=== PATIENT | male | born 1975 | race Caucasian/White ===

== ENCOUNTER → 2021-05-18 07:47 | Outpatient (CLI) | payer OTHER, SELFPAY ==
--- NOTE | ~2021-05-18 | US_ITS ---
EXAMINATION: US thyroid DATE: 05/18/2021 08:10 INDICATION: Nontoxic single thyroid nodule. TECHNIQUE: Multiple ultrasound images of the thyroid were obtained. COMPARISON: None. FINDINGS: The right thyroid lobe measures 4.8 x 1.7 x 2.3 cm. The left thyroid lobe measures 4.5 x 1.4 x 2.2 c m. In the left thyroid lobe, there is an 8 mm solid, very hypoechoic, svuti-lcgp-gnxp nodule with sm ooth margin without echogenic foci (TI-RADS TR4). IMPRESSION: 1. Small thyroid nodule, likely not clinically significant. No follow-up is needed. Reviewed, dictated and finalized at location B. 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 Small thyroid nodule, likely not clinically significant. No follow-up is nee ded.
== END ==
PROVIDERS: PCP Family Medicine; Visit Provider Physician Assistant Medical
DX: E04.1 Nontoxic single thyroid nodule (principal)
CPT/HCPCS: 76536

== ENCOUNTER → 2023-03-19 08:08 | Outpatient (CLI) | payer OTHER, SELFPAY ==
--- NOTE | ~2023-03-19 | US_ITS ---
EXAMINATION: US thyroid DATE: 03/19/2023 08:22 INDICATION: Nontoxic single thyroid nodule. TECHNIQUE: Multiple ultrasound images of the thyroid were obtained. COMPARISON: Ultrasound 05/18/2021 FINDINGS: The right thyroid lobe measures 5.5 x 2.8 x 2.0 cm. The left thyroid lobe measures 4.5 x 2.3 x 1.4 c m. In the left thyroid lobe, there is an 8 mm mixed cystic and solid, very hypoechoic, wider than ta ll nodule with smooth margin without echogenic foci (TI-RADS TR4). IMPRESSION: 1. Stable small thyroid nodule, likely not clinically significant. No follow-up is needed. Reviewed, dictated and finalized at location A. [employer] [employer]
== END ==
PROVIDERS: PCP Family Medicine; Visit Provider Otolaryngology
DX: E04.1 Nontoxic single thyroid nodule (principal)
CPT/HCPCS: 76536

== ENCOUNTER 2023-04-26 14:00 | Outpatient (CLI) | payer OTHER, SELFPAY | END 2023-04-26 14:01 | disposition home or self-care (01) | LOC: ANHAUDASC 11-19 08:13 | PROVIDERS: PCP Family Medicine; Visit Provider Otolaryngology | DX: E04.1 Nontoxic single thyroid nodule (principal); H61.22 Impacted cerumen, left ear; H65.492 Other chronic nonsuppurative otitis media, left ear; H90.12 Conductive hearing loss, unilateral, left ear, with unrestricted hearing on the contralateral side | CPT/HCPCS: 92557; 92567 ==

== ENCOUNTER 2023-07-20 00:52 | Day surgery (SDC) | payer OTHER, SELFPAY ==
[2023-07-16 11:24] VITALS: BMI 28.4
--- NOTE | 2023-07-16 12:01 | PC.NURSE ---
Report to the Outpatient Waiting Room, entrance under the green pavilion located off [facility], at time 0945 on date _07/20/23 . Planned Procedure Time: _1145 . Time changes happen often and if your time is changed the preop area will call you the afternoon before. - You and your visitor will be asked to self-screen and do not enter if you have any COVID symptoms. - A mask is optional within the hospital at this time. Patients may have clear liquids (water, carbonated beverages, clear teas, apple juice) until 3 hours prior to surgery with a maximum of 20 ounces. - No food from midnight until time of surgery Take the following medications with a SIP of water the morning of surgery: NONE DO NOT STOP ANY OF YOUR OTHER PRESCRIPTION MEDICATIONS PRIOR TO SURGERY ?EXCEPT THE FOLLOWING Medications to discontinue per physician NONE Date to take last dose____NONE Please no make-up, nail sinhala, hairspray, perfume, deodorant, or body powder the day of surgery. No jewelry (including any body piercings) or valuables the day of surgery, leave them at home. Please take a shower or bath the night before, or the morning of, surgery with an antibacterial soap. Wear comfortable, loose fitting clothing. - Jewelry must be removed prior to entering the operating room. Rings and piercings that are not removed may be cut off. - The hospital will not accept responsibility for valuables. - Please leave all valuables, including medications, at home the day of surgery. If you are going home after surgery, a licensed dolly driver must drive you home. - NO public transportation without another adult if you receive anesthesia. - We recommend that an adult stay with you for 24 hours following discharge. - We also recommend that you do not drive, make important decision, drink alcoholic beverages, or take any drugs that were not prescribed by your health care provider for at least 24 hours after your discharge time. Follow any additional instructions given to you from your surgeon. If you or anyone in your household have experienced Covid symptoms in the past week, please notify your surgeon or the nurse liaison at the phone number below for possible testing. Telephone instructions given to _JEFF and asked if any additional questions and then verbalized understanding. Patient advised to call surgeon office or pre surgery nurse liaison [phone] if any additional questions.
--- NOTE | 2023-07-19 14:03 | WPDANESEPPF ---
Anes - Initial Pre Proc Eval Procedure: Operation Date: 07/20/23 12:45 Proposed Procedures p Bilateral Inferior Turbinate Reduction with Outfracture - Reza Mcelroy MD s Endoscopic Septoplasty - Reza Mcelroy MD Date/Time: 07/19/23 14:03 Surgeon: Reza Mcelroy MD Pre Op Diagnosis: Septal Dev, Turbinate Hypertrrophy Patient Data Age: 47 Gender: M Height: 1.83 m Weight: 95 kg Allergies Allergy/AdvReac Type Severity Reaction Status Date / Time lisinopril AdvReac Unknown RINGING OF Verified 07/20/23 11:18 EARS norvasc AdvReac Mild salivary Uncoded 07/20/23 11:18 gland swelling Home Medications Medication Instructions Recorded Confirmed Type fluticasone propionate 50 2 spray intranasal DAILY #18 mL 03/13/23 07/20/23 Rx mcg/actuation nasal spray,suspension (Flonase Allergy Relief) valacyclovir 1 gram tablet 1,000 mg PO Q12H #4 tabs 05/28/23 07/20/23 Rx finasteride 1 mg tablet See Rx Instructions .Route 07/03/23 07/20/23 Rx .COMPLEX #90 tabs losartan 25 mg tablet 25 mg PO DAILY #90 tabs 07/03/23 07/20/23 Rx Patient hx anesthesia problems: none Family hx anesthesia problems: none Results Review: All pre-operative results and documents have been reviewed as part of the pre-operative evaluation. [facility] Past Medical History Medical History (Updated 07/19/23 @ 14:03 by Wally Leonard DO) BMI 29.0-29.9,adult Essential hypertension Hyperlipidemia Family History Family History Father Hypertension Mother Patient's mother is in good health Melanoma Sibling Patient's sister is in good health Grandparent Family history of cardiovascular disease Cerebrovascular accident Malignant neoplasm of prostate Family history of malignant neoplasm of kidney Other Family history of coronary artery disease Social History Social History Smoking status: Never smoker Tobacco type: cigarettes Second hand tobacco smoke exposure: No Alcohol intake: current Substance use: never Substance use type: does not use Lack of Transportation: No Lack of Food: Never True Current Housing: I Have Housing Concerned About Future Housing: No Difficulty Paying Gas/Electric Bills: No Difficulty Paying for Meds: No Currently Unemployed: No Education: Master's Degree or Higher Difficulty w/ Childcare or Family Care: No Living arrangements: with family Occupation/Education: occupation 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 Informed Consent: The patient's anesthetic plan and its attendant risks and benefits were discussed with the patient/family/POA. Questions were solicited and answers provided to the satisfaction of the patient/family/POA.
--- NOTE | 2023-07-19 16:57 | PM.IMHP ---
H&P: HPI History of Present Illness Date/Time: 07/19/23 16:57 Chief Complaint: septal deviation turbinate hypertrophy Narrative: planned procedure Review of Systems Review of Systems: All systems reviewed & are unremarkable except as noted in HPI and below [facility] Past Medical History Medical History (Updated 07/19/23 @ 14:03 by Wally Leonard DO) BMI 29.0-29.9,adult Essential hypertension Hyperlipidemia Family History Family History Father Hypertension Mother Patient's mother is in good health Melanoma Sibling Patient's sister is in good health Grandparent Family history of cardiovascular disease Cerebrovascular accident Malignant neoplasm of prostate Family history of malignant neoplasm of kidney Other Family history of coronary artery disease Social History Social History Smoking status: Never smoker Tobacco type: cigarettes Second hand tobacco smoke exposure: No Alcohol intake: current Substance use: never Substance use type: does not use Lack of Transportation: No Lack of Food: Never True Current Housing: I Have Housing Concerned About Future Housing: No Difficulty Paying Gas/Electric Bills: No Difficulty Paying for Meds: No Currently Unemployed: No Education: Master's Degree or Higher Difficulty w/ Childcare or Family Care: No Living arrangements: with family Occupation/Education: occupation 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 Gender identity (if verbalized by the patient): Male Spiritual care concerns: No Meds Home Medications and Allergies Home Medications Medication Instructions Recorded Confirmed Type fluticasone propionate 50 2 spray intranasal DAILY #18 mL 03/13/23 07/16/23 Rx mcg/actuation nasal spray,suspension (Flonase Allergy Relief) valacyclovir 1 gram tablet 1,000 mg PO Q12H #4 tabs 05/28/23 07/16/23 Rx finasteride 1 mg tablet See Rx Instructions .Route 07/03/23 07/16/23 Rx .COMPLEX #90 tabs losartan 25 mg tablet 25 mg PO DAILY #90 tabs 07/03/23 07/16/23 Rx Allergies Allergy/AdvReac Type Severity Reaction Status Date / Time lisinopril Allergy Unknown RINGING OF Verified 06/15/23 08:14 EARS norvasc AdvReac Mild salivary Uncoded 06/15/23 08:14 gland swelling Exam Narrative: septal deviation turbinate hypertrophy Assessment and Plan Assessment and plan (1) Hypertrophy of both inferior nasal turbinates: Code(s): J34.3 - Hypertrophy of nasal turbinates Status: Acute Assessment and Plan: Plan will be OR endoscopic assisted septoplasty and turbinate reduction.? I told like make about 80 95% better just by opening up the right side.? Via burn release principal this may decreased airflow through the left-sided help with collapse.? Patient is well aware there is a risk that of the left internal nasal valve being a problem afterwards and he may need revision surgery.? Patient voiced understanding of this.? Other risks discussed bleeding infection damage to surrounding structures change in vision blindness CSF leak brain brain damage all very very unlikely.? Need for splint placement haired risk of narcotic use damage any structures above the clavicle by myself damage any structures during the induction and maintenance of anesthesia including vocal cord paralysis. (2) Acquired deviated nasal septum: Code(s): J34.2 - Deviated nasal septum Status: Acute
[2023-07-20] VITALS (8 sets, daily range): BP systolic 130–162; BP diastolic 85–104; PULSE 53–73; RESP 10–18; TEMP 36.7–36.8; O2SAT 100
--- NOTE | 2023-07-20 07:26 | WPDHPUPDATE1 ---
History and Physical Update Update Date/Time: 07/20/23 07:26 History and Physical has been reviewed, including an updated exam of the patient. There are NO changes in the patient's condition. Risks, benefits, and alternatives have been discussed and questions answered. Patient agrees to proceed with procedure.
--- NOTE | 2023-07-20 11:41 | ECG_ITS ---
Measurements Intervals [place] Rate: 55 P: 34 VA: 167 QRS: 22 QRSD: 97 T: 22 QT: 407 QTc: 391 Interpretive Statements SINUS BRADYCARDIA INCOMPLETE RIGHT BUNDLE BRANCH BLOCK BORDERLINE ECG COMPARED TO ECG 08/26/2018 08:18:04 SINUS BRADYCARDIA NOW PRESENT Electronically Signed On 07-20-2023 13:16:12 CDT by Bo Mathew D.O.
[2023-07-20] MEDS: ACETAMINOPHEN 500 MG TABLET 1000 MG PO (11:42)
[2023-07-20] MEDS: LACTATED RINGERS 1,000 ML 30 ML IV CONT ×2 (11:45→16:27)
--- NOTE | 2023-07-20 12:00 | SUR.PREOP ---
PATIENT UPDATED ON SURGERY DELAY
--- NOTE | 2023-07-20 12:30 | WPDHPUPDATE1 ---
History and Physical Update Update Date/Time: 07/20/23 12:30 History and Physical has been reviewed, including an updated exam of the patient. There are NO changes in the patient's condition. Risks, benefits, and alternatives have been discussed and questions answered. Patient agrees to proceed with procedure. Procedure will be septoplasty, inferior turbinate reduction with outfracture bilaterally
[2023-07-20] MEDS: ceFAZolin 2 GM/D5W 50 ML 2 GM/50 ML BAG IVPB (14:17)
[2023-07-20] MEDS: MUPIROCIN 2% OINT 22 GM TUBE 1 APPLIC EACH NARE (15:46)
[2023-07-20] MEDS: OXYMETAZOLINE HCL 0.05% NAS 15 ML BTL (*BKC) 1 SPRAY NASAL (15:49)
[2023-07-20] MEDS: LIDO 1%/EPINEPHRINE 1:100,000 50 ML VIAL 16 ML INFILTRATE (15:52)
--- NOTE | 2023-07-20 16:33 | W.PM.PROC2 ---
Procedure Note - Detailed Date of Procedure 07/20/23 Pre-op Diagnosis Septal Dev, Turbinate Hypertrrophy Post-op Diagnosis Same Procedure Performed SP endoscopic assisted turbinate reduction bilaterally with outfracture septoplasty Surgeon Reza Mcelroy MD Anesthesia General Indications see above Findings severely deviated caudal right septum perforations on the right side none on the left severely hypertrophied osteotomy turbinates well reduced little bit more bleeding than normal at from the scar tissue from the nasal fracture in his past. Total blood loss about 15 cc 20 cc. Description of Procedure Patient identified consent verified preop. Patient brought operating. Time-out performed. General anesthesia induced endotracheal tube secured. Patient prepped draped positioned procedure confirmed 2nd time-out performed. Afrin-soaked pledgets placed for 5 minutes then removed total 13 cc 1% lidocaine 1 100,000 parts epinephrine checked the bilateral nasal septum and inferior turbinates [place] incision made very anteriorly left side left nasal septal flap elevated osteotome utilized crossover right nasal septal flap elevated deviated cartilage removed with Yoel forceps Bryant Lopez forceps and osteotome. Several perforations on the right side none on the left Arturo incision closed after FloSeal was applied with 4 interrupted 5 0 fast gut sutures. Turbinates reduced 15 blade used to make a stab anteriorly microdebrider [place] microdebrider with 2.5 mm blade utilized to debulk them mulberry tips cauterized Bovie suction electrocautery setting of 15. He anterior portions with a stab incision were made FloSeal was placed in this. They were outfractured [place] elevator Gary splints placed current all the perforations much better appearance postoperatively Gary splints sutured anteriorly using 3-0 mattress nylon suture. Patient tolerated procedure well no complications I performed all dictated portions procedure blood loss about 15-20 cc. Estimated Blood Loss 15 Drains No Packing No Pathology None sent Complications No immediate complications Condition Stable Disposition PACU [facility] Billing Surgery - Charge Forward: Surgery Billing
== END 2023-07-20 18:27 | disposition home or self-care (01) ==
PROVIDERS: PCP Family Medicine; Visit Provider Otolaryngology
PROC: (CPT 30520; principal; 2023-07-20 12:45)
PROC: (CPT 30520; 2023-07-20 12:45)
DX: J34.2 Deviated nasal septum (principal); J34.3 Hypertrophy of nasal turbinates; I10 Essential (primary) hypertension; E78.5 Hyperlipidemia, unspecified
CPT/HCPCS: 30520; 30140; 93005; A9270; J0690; J1100; J1170; J2250; J2405; J2704; J3010; J7050; J7120

== ENCOUNTER 2023-11-07 08:12 | Outpatient (CLI) | payer OTHER, SELFPAY ==
--- NOTE | 2023-11-07 08:31 | EST_ITS ---
Patient Info Name: Lon Ballard Age: 48 years : 1975 Gender: Male Ht: 71 in Wt: 208 lbs BSA: 2.19 m2 HR: 70 bpm BP: 141 / 95 mmHg Heart Rhythm: Sinus Rhythm Exam Date: 11/07/2023 8:42 AM Exam Location: Echo Lab Patient Status: Outpatient Admit Date: 11/07/2023 Staff Ordering Physician: Gris Ruff PAC Attending Provider: Gris Ruff PAC Exercise Technologist: Dee Joyce CT Exercise Physician: Bo Mathew DO Exam Type: CA stress test treadmill Study Info Indications R07.89 - Other chest pain A treadmill exercise stress test was performed. Summary 1. 1. Negative Darci exercise stress test for ischemic ST changes by ECG criteria. 2. 2. Good functional capacity, achieving 12 METs of workload. 3. 3. Baseline hypertension. 4. 4. Appropriate HR response to exercise. 5. 5. Appropriate HR recovery at 1 minute post exercise. 6. 6. No imaging with stress testing. Protocol: Darci Stress ECG Details Stage: REST Duration (min): 1 min : 4 sec Speed (mph): 0.0 Grade (%): 0 HR (bpm): 74 SBP (mmHg): 141 DBP (mmHg): 95 METS: --- Stage: REST Duration (min): 4 min : 49 sec Speed (mph): 0.0 Grade (%): 0 HR (bpm): 76 SBP (mmHg): 141 DBP (mmHg): 95 METS: --- Stage: STAGE 1 Duration (min): 1 min : 0 sec Speed (mph): 1.7 Grade (%): 10 HR (bpm): 108 SBP (mmHg): 141 DBP (mmHg): 95 METS: --- Stage: STAGE 1 Duration (min): 2 min : 0 sec Speed (mph): 1.7 Grade (%): 10 HR (bpm): 103 SBP (mmHg): 141 DBP (mmHg): 95 METS: --- Stage: STAGE 1 Duration (min): 3 min : 0 sec Speed (mph): 1.7 Grade (%): 10 HR (bpm): 103 SBP (mmHg): 151 DBP (mmHg): 103 METS: --- Stage: STAGE 2 Duration (min): 1 min : 0 sec Speed (mph): 2.5 Grade (%): 12 HR (bpm): 117 SBP (mmHg): 151 DBP (mmHg): 103 METS: --- Stage: STAGE 2 Duration (min): 2 min : 0 sec Speed (mph): 2.5 Grade (%): 12 HR (bpm): 122 SBP (mmHg): 150 DBP (mmHg): 107 METS: --- Stage: STAGE 2 Duration (min): 3 min : 0 sec Speed (mph): 2.5 Grade (%): 12 HR (bpm): 124 SBP (mmHg): 150 DBP (mmHg): 107 METS: --- Stage: STAGE 3 Duration (min): 1 min : 0 sec Speed (mph): 3.4 Grade (%): 14 HR (bpm): 133 SBP (mmHg): 185 DBP (mmHg): 97 METS: --- Stage: STAGE 3 Duration (min): 2 min : 0 sec Speed (mph): 3.4 Grade (%): 14 HR (bpm): 136 SBP (mmHg): 185 DBP (mmHg): 97 METS: --- Stage: STAGE 3 Duration (min): 3 min : 0 sec Speed (mph): 3.4 Grade (%): 14 HR (bpm): 142 SBP (mmHg): 180 DBP (mmHg): 83 METS: --- Stage: STAGE 4 Duration (min): 1 min : 0 sec Speed (mph): 4.2 Grade (%): 16 HR (bpm): 149 SBP (mmHg): 180 DBP (mmHg): 83 METS: --- Stage: STAGE 4 Duration (min): 1 min : 33 sec Speed (mph): 4.2 Grade (%): 16 HR (bpm): 153 SBP (mmHg): 180 DBP (mmHg): 83 METS: --- ---
== END 2023-11-07 08:13 | disposition home or self-care (01) ==
PROVIDERS: PCP Family Medicine; Visit Provider Physician Assistant Medical
DX: R07.9 Chest pain, unspecified (principal)
CPT/HCPCS: 93017

== ENCOUNTER 2024-03-19 08:21 | Outpatient (CLI) | payer OTHER, SELFPAY ==
--- NOTE | ~2024-03-19 | US_ITS ---
EXAMINATION: US thyroid DATE: 03/19/2024 08:40 INDICATION: Nontoxic single thyroid nodule. TECHNIQUE: Multiple ultrasound images of the thyroid were obtained. COMPARISON: Ultrasound 03/19/2023, 05/18/2021 FINDINGS: The right thyroid lobe measures 5.5 x 2.4 x 1.8 cm. The left thyroid lobe measures 4.3 x 2.1 x 1.7 c m. In the left thyroid lobe, there is an 8 mm solid, very hypoechoic, wider than tall nodule with sm ooth margin without echogenic foci (TI-RADS TR4), stable from 05/18/2021. IMPRESSION: 1. Stable small thyroid nodule, likely not clinically significant. No follow-up is needed. Reviewed, dictated and finalized at location [] [employer]
== END 2024-03-19 08:22 | disposition home or self-care (01) ==
LOC: GOSHIMG 08:21
PROVIDERS: PCP Family Medicine; Visit Provider Otolaryngology
DX: E04.1 Nontoxic single thyroid nodule (principal)
CPT/HCPCS: 76536

== ENCOUNTER 2024-06-11 09:57 | Outpatient (CLI) | payer OTHER, SELFPAY ==
--- NOTE | ~2024-06-11 | XR_ITS ---
AP and oblique views of the bilateral ribs, and PA and lateral chest radiographs Clinical History: Pain Findings: No rib fracture is seen. Osseous alignment is anatomic. Lungs are clear, without focal cons olidation or pleural effusion. Cardiomediastinal contour is within normal limits. Soft tissues are un remarkable. Impression: No rib fracture is seen. Clear lungs. Reviewed, dictated and finalized at location . 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 Clear lungs.
--- OUTSIDE RECORDS SUMMARY | 2024-06-11 10:50 | XMS_ITS | Encounter Summary ---
Author Organization [facility] Address [address] [place] [address] Care Team Providers Care Economic Development Specialist Name Role Phone Summer Myers MD Primary Care Provider Juanjo Ferreira MD Unavailable Kimberly Mathews MD Unavailable Rodrick Vasquez MD Primary Care Provider [phone] Reason for Visit * Reason Onset Date Comments Refill Request 09/03/2017 Encounter Details Date Type Department Care Team (Late st Contact Info) Description 09/03/2017 Refill [facility] [address] [place] [address] Yonny Olmedo MD [address] [place] [id number] Refill Request Social History Tobacco Use Types Packs/Day Years Used Date Smoking Tobacco: Never Smokeless Tobacco: Never Alcohol Use Standard Drinks/Week Comments Yes 0 (1 standard drink = 0.6 oz pur e alcohol) Sex and Gender Information Value Date Recorded Sex Assigned at Not on file Gender Identity Not on file Sexual Orientation Not on file documented as of this encounter Miscellaneous Notes * Telephone Encounter - Isha Levy - 09/03/2017 11:39 AM CDT [place] 01/21/16 [place] 02/01/18 Isha Levy * Telephone Encounter - Selma Perdomo - 09/03/2017 10:59 AM [phone] - Requesting a refill on Valacyclovir documented in this encounter Plan of Treatment Not on file documented as of this encounter Visit Diagnoses Not on filedocumented in this encounter Care Teams Economic Development Specialist Relationship Specialty Start Date End Date Summer Myers MD PCP - General 04/06/17 04/09/22 Rodrick Vasquez MD [address] [place] [id number] PCP - General 04/10/22 Juanjo Ferreira MD [address] [place] [address] Resident - PCP Internal Medicine 07/29/18 12/30/18 Kimberly Mathews MD [address] [place] [address] Resident - PCP Student Resident 12/31/18 documented as of this encounter
--- OUTSIDE RECORDS SUMMARY | 2024-06-11 10:50 | XMS_ITS | Encounter Summary ---
Author Organization [facility] Address [address] [place] [address] Care Team Providers Care Industrial Eng Name Role Phone Summer Myers MD Primary Care Provider Juanjo Ferreira MD Unavailable Kimberly Mathews MD Unavailable Rodrick Vasquez MD Primary Care Provider [phone] Reason for Visit * Reason Onset Date Comments Future Appointment 07/24/2018 Encounter Details Date Type Department Care Team (Late st Contact Info) Description 07/24/2018 Telephone [facility] Internal Medicine [address] [facility] [address] [place], [place] [id number] Summer Myers MD [address] [facility] [address] [place] [address] Future Appointment Social History Tobacco Use Types Packs/Day Years [...] encounter Miscellaneous Notes * Telephone Encounter - Meggan Tay - 07/24/2018 11:54 AM CDT Pt Lon Balladr Pt requesting to see if he could see another resident with a sooner date pt has an appt with Dr. Ferreira for Sunday at 2:00 PM. Pt was wanting to know if he could see another resident that has a sooner appt than July 29. Thank you very much Meggan documented in this encounter Plan of Treatment Not on file documented as of this encounter Visit Diagnoses Not on filedocumented in this encounter Care Teams Industrial Eng Relationship Specialty Start Date End Date Summer Myers MD PCP - General 04/06/17 04/09/22 Rodrick Vasquez MD [place] [phone] PCP - General 04/10/22 Juanjo Ferreira MD [address] [place] [address] Resident - PCP Internal Medicine 07/29/18 12/30/18 Kimberly Mathews MD [address] [place] [address] Resident - PCP Student Resident 12/31/18 documented as of this encounter
--- OUTSIDE RECORDS SUMMARY | 2024-06-11 10:50 | XMS_ITS | Encounter Summary ---
Author Organization [facility] Address [address] [place] [address] Care Team Providers Care Quarry Supervisor Name Role Phone Kimberly Mathews MD Unavailable Rodrick Vasquez MD Primary Care Provider Encounter Details Date Type Department Care Team (Late st Contact Info) Description 12/05/[address] [facility] [address] [facility] [place] [phone] Idalia Anguiano MD [address] [place] [address] [place] [address] Melanocytic nevi of trunk Social History Tobacco Use Types Packs/Day Years Used Date Smoking Tobacco: Never Smokeless Tobacco: Never Alcohol Use Standard Drinks/Week Comments Yes 0 (1 standard drink = 0.6 oz pur e alcohol) Sex and Gender Information Value Date Recorded Sex Assigned at Not on file Gender Identity Not on file Sexual Orientation Not on file documented as of this encounter Plan of Treatment Not on file documented as of this encounter Visit Diagnoses Diagnosis Melanocytic nevi of trunk Benign neoplasm of skin of trunk, except scrotum documented in this encounter Care Teams Quarry Supervisor Relationship Specialty Start Date End Date Rodrick Vasquez MD [address] [place] [address] [place] [address] PCP - General 04/10/22 Kimberly Mathews MD [address] [place] [address] Resident - PCP Student Resident 12/31/18 documented as of this encounter
--- OUTSIDE RECORDS SUMMARY | 2024-06-11 10:50 | XMS_ITS | Clinical Summary ---
[facility] Organization [facility] Address [address] [place]: Epic Prelude ADT [place] [address] Care Team Providers Care Butadiene Compressor Operator Name Role Phone Unavailable Primary Care Provider Unavailabl e Medications lidocaine-alumi num-magnesium hydroxide-simet hicone-diphenhy drAMINE-nystati n mouthwash SWISH AND SPIT 10 mL by mouth 2 times daily. 400 mL 12/22/2021 8:46 AM CDT 2 Active amoxicillin (AMOXIL) 500 mg capsule TAKE ONE CAPSULE BY MOUTH EVERY 12 HOURS FOR 10 DAYS 20 Capsule 12/22/2021 10:16 AM CDT 2 Active amLODIPine (NORVASC) 2.5 mg tablet Take 1 Tablet (2.5 mg) by mouth daily. Take with 5 mg strength. 90 Tablet 1 08/09/2022 2:54 PM CDT 2 Active neomycin-polymy nery-hydrocortis one (CORTISPORIN) 3.5-10,000-1 mg/mL-unit/mL-% otic solution ADMINISTER 4 DROPS IN THE LEFT EAR FOUR TIMES DAILY FOR 7 DAYS 10 mL 12/05/2022 5:30 PM CDT 3 Active fluticasone propionate (FLONASE) 50 mcg/spray [place], Suspension nasal inhaler ADMINISTER 2 SPRAYS IN EACH NOSTRIL DAILY 16 Gram 2 03/19/2023 2:26 PM PHARMACIST APPRENTICE 3 Active hydrocortisone (HYTONE) 2.5 % Ointment Apply to itchy areas on face twice daily for 2 weeks maximum. 28.35 Gram 07/04/2023 9:22 AM PHARMACIST APPRENTICE 4 Active finasteride (PROPECIA) 1 mg Tablet Take 1 Tablet (1 mg) by mouth daily. 90 Tablet 09/24/2023 2:08 PM CDT 4 Active valACYclovir (VALTREX) 1 gram tablet Take 1 Tablet (1 Gram) by mouth every 12 hours. 4 Tablet 2 04/09/2024 2:08 PM PHARMACIST APPRENTICE 4 Active losartan (COZAAR) 25 mg tablet Take 1 Tablet (25 mg) by mouth daily. 90 Tablet 04/09/2024 2:08 PM PHARMACIST APPRENTICE 4 Active Immunizations Immunization Administration Dates Next Due (COMIRNATY)(12 YR UP) COVID- 19 VACCINE, MRNA, SPIKE PROTEIN, LNP, CUCO(PF) 30 MCG/0.3 ML IM SUSP 03/19/2023 INFLUENZA VACCINE QUADRIVALENT 6 MOS UP PF IM Social History Tobacco Use Types Packs/Day Years Used Date Smoking Tobacco: Never Assessed Sex and Gender Information Value Date Recorded Sex Assigned at Not on file Legal Sex Male 3:27 PM CDT Gender Identity Not on file Sexual Orientation Not on file Plan of Treatment Health Maintenance Due Date Last Done Comments DTAP/TDAP/TD VACCINES (1 - Tdap) 1993 HEPATITIS B VACCINES (1 of 3 - 19+ 3-dose series) 1993 COLORECTAL SCREENING 09/28/2019 Colorectal Cancer Screening 09/28/2019 FIT-DNA Q 3 years 09/28/2019 FIT/FOBT Q 1 year 09/28/2019 Flex Sig/CT Colonography Q 5 years 09/28/2019 INFLUENZA VACCINE (#1) 2023 03/19/2023 COVID-19 Vaccine (2 - 2023-2 5 season) 2024 03/19/2023 PNEUMOCOCCAL VACCINE 0-64 YEARS Aged Out No longer eligible based on patient's age to complete this topic Insurance RX [employer] RX Member Subscriber Plan / Payer (Ef fective 2022-Present) Name:Lon Ballard Relation to Subscriber:Not on file Name:Lon Ballard Subscriber ID:Not on file Date of :1975 Payer ID:Not on file Group ID:[id number] Type:RX Commercial Address: [place] RX [employer] (INTERNAL) [facility]
--- OUTSIDE RECORDS SUMMARY | 2024-06-11 10:51 | XMS_ITS | Patient Health Summary ---
Author Organization [facility] Address [address] [place] [address] Care Team Providers Care Logger Name Role Phone Kimberly Mathews MD Unavailable Rodrick Vasquez MD Primary Care Provider [phone] Note from [facility],non-owned Affiliates and Associated Physician Practices is amultiple site organization consisting of ambulatory clinics and hospital sitesin [place], [place], [place] and [place]. This disclosure is being madepursuant to the Care Everywhere program and may not contain all information available regarding this patient. Last updated 18.[facility] Allergies * Lisinopril(Tinnitus) -Low Criticality Medications * Be aware that medications may not be up to date on this document. Alwaysverify current medications with the patient. * amLODIPine (NORVASC) 5 MG tablet(Started 01/07/2019) TAKE ONE TABLET BY MOUTH ONCE DAILY 1 refill remaining * valACYclovir (VALTREX) 1 GM tablet(Started 04/11/2019) Take 2 grams bid x 1 day (2 doses) for flares. 2 refills by 04/10/2020 * finasteride (PROPECIA) 1 MG tablet(Started 04/11/2019) Take one tab by mouth every other day. 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 (FLUZONE; FLULAVAL; FLUARIX; AFLURIA QUADRIVALENT; 6MO+), 0.5 ML (IIV4)(Given 07/29/2018) * Influenza Intradermal(Given 02/26/2017) * TDAP (7yrs+)(Given 02/26/2017) Social History Tobacco Use Types Packs/Day Years Used Date Smoking Tobacco: Never Smokeless Tobacco: Never Alcohol Use Standard Drinks/Week Comments Yes 0 (1 standard drink = 0.6 oz pur e alcohol) Sex and Gender Information Value Date Recorded Sex Assigned at Not on file Gender Identity Not on file Sexual Orientation Not on file Last Filed Vital Signs Vital Sign Reading Time Taken Comments Blood Pressure 140/100 12/30/2018 3:27 PM CDT Pulse 73 12/30/2018 3:27 PM CDT Temperature 36.7 ??C (98.1 ??F) 12/30/2018 3:27 PM CD T Respiratory Rate 18 07/26/2018 9:13 AM CDT Oxygen Saturation 96% 12/30/2018 3:27 PM CDT Inhaled Oxygen Concentration - - Weight 90.3 kg (199 lb) 12/30/2018 3:27 PM CDT Height 182.9 cm (6') 02/26/2017 2:46 PM CDT Body Mass Index 26.99 02/26/2017 2:46 PM CDT Procedures * NV DESTROY PREMALIG LESION, 1ST LESION(Performed 04/10/2022) Performed for Actinic keratosis * NV DESTROY PREMALIG LESION, 2-14(Performed 04/10/2022) Performed for Actinic keratosis * NV DESTROY PREMALIG LESION, 1ST LESION(Performed 04/06/2021) Performed for Actinic keratosis * SYPHILIS ANTIBODY CASCADING REFLEX(Performed 07/26/2018) Performed for Contact with and (suspected) exposure to infections with a predominantly sexual mode of transmission, Essential hypertension * HIV-1 HIV-2 ANTIGEN/ANTIBODY(Performed 07/26/2018) Performed for Contact with and (suspected) exposure to infections with a predominantly sexual mode of transmission * NEISSERIA GONORRHOEAE RICHARD(Performed 07/26/2018) Performed for Contact with and (suspected) exposure to infections with a predominantly sexual mode of transmission * CHLAMYDIA TRACHOMATIS RICHARD(Performed 07/26/2018) Performed for Contact with and (suspected) exposure to infections with a predominantly sexual mode of transmission * HEMOGLOBIN A1C - POINT OF CARE (AMB) [facility](Performed 02/26/2017) * DERMATOPATHOLOGY(Performed 08/03/2015) * DERMATOPATHOLOGY(Performed 12/24/2012) Results * NV DESTROY PREMALIG LESION, 2-14, NV DESTROY PREMALIG LESION, 1ST LESION (04/10/2022 9:08 AM [employer]) Narrative Kory Escobar MD - 04/10/2022 9:08 AM [employer] Boo Lambert MD ? 04/10/2022 ??9:09 AM Diagnosis and treatment options discussed. Cryotherapy (Liquid Nitrogen) to 3 AK(s) (location: R brow, glabella, R nasal sidewall ) x 6-7 seconds each. Number of cycles: 1. Wound care reviewed. Kory Escobar MD PROCEDURE/MINOR SURG ICAL ORDERABLES * NV DESTROY PREMALIG LESION, 1ST LESION (04/06/2021 2:58 PM [employer]) Narrative Kory Escobar MD - 04/06/2021 2:58 PM [employer] Veronika Taylor DO ? 04/06/2021 ??2:58 PM Diagnosis and treatment options discussed. Cryotherapy (Liquid Nitrogen) to 1 lesions for 5 to 10 seconds each. Number of cycles: 1. Wound care reviewed. Veronika Taylor DO [facility] Dermatology Resident, PGY-4 Kory Escobar MD PROCEDURE/MINOR SURG ICAL ORDERABLES * NEISSERIA GONORRHOEAE RICHARD (07/26/2018 10:40 AM CDT) Neisseria Gonorrhoeae RICHARD Not Detected Not Detected 07/29/2018 5:36 PM CDT [facility] PATHOLOGY LAB Microbiology URINE / Unknown Collection / Unknown 07/26/2018 10:40 AM CDT 07/26/2018 11:44 AM CDT Narrative [facility] PATH[facility] - 07/29/2018 5:36 PM CDT This analysis was performed using Gen-Probe Aptima Combo 2. This methodology is U.S. FDA approved for Chlamydia trachomatis and Neisseria gonorrhoeae testing for urine and urogenital swabs from men and women, and cervical cells submitted in ThinPrep vials. Performance characteristics for rectal and pharyngeal swabs were determined by the Molecular Diagn[facility] Laboratory at [facility]. ??Testing by Gen- Probe Aptima Combo 2 on these sample types has not been cleared or approved by the U.S. FDA. ??The FDA has determined that such clearance approval is not necessary. ??This test is used for clinical purposes and should not be regarded as investigational or for research. ??This laboratory is certified under the Clinical Laboratory Improvements Amendments of 1988 (CLIA 1988), as qualified to perform high complexity laboratory testing. Mark Hernández MD LAB - MICROBIOLOG Y ORDERABLES Performing Organization Address City/State/[facility] Co de Phone Number [facility] PATHOLOGY LAB [address] [phone] * CHLAMYDIA TRACHOMATIS RICHARD (07/26/2018 10:40 AM CDT) Chlamydia Trachomatis RICHARD Not Detected Not Detected 07/29/2018 5:36 PM CDT [facility] PATHOLOGY [facility] Microbiology URINE / Unknown Collection / Unknown 07/26/2018 10:40 AM CDT 07/26/2018 11:44 AM CDT Narrative [facility] PATHOLOGY LAB - 07/29/2018 5:36 PM CDT This analysis was performed using Gen-Probe Aptima Combo 2. This methodology is U.S. FDA approved for Chlamydia trachomatis and Neisseria gonorrhoeae testing for urine and urogenital swabs from men and women, and cervical cells submitted in ThinPrep vials. Performance characteristics for rectal and pharyngeal swabs were determined by the [facility] Laboratory at [facility]. ??Testing by Gen- Probe Aptima Combo 2 on these sample types has not been cleared or approved by the U.S. FDA. ??The FDA has determined that such clearance approval is not necessary. ??This test is used for clinical purposes and should not be regarded as investigational or for research. ??This laboratory is certified under the Clinical Laboratory Improvements Amendments of 1988 (CLIA 1988), as qualified to perform high complexity laboratory testing. Mark Hernández MD LAB - MICROBIOLOG Y ORDERABLES Performing Organization Address City/[facility]/ZIP Co de Phone Number [facility] PATHOLOGY LAB [address] [phone] * HIV-1 HIV-2 ANTIGEN/ANTIBODY (07/26/2018 10:40 AM CDT) HIV Antigen/Antibod y 1 & 2 Non-reacti ve Non-react rebecca 07/26/2018 12:05 PM CDT [facility] Comment: Neither HIV-1 p24 Antigen nor HIV-1/HIV-2 Antibodies are detected. ? Blood BLOOD SPECIMEN / Unknown Lab Venipuncture / Unknown 07/26/2018 10:40 AM CDT 07/26/2018 11:24 AM CDT Mark Hernández MD LAB - HEMATOLOGY ORDERABLES Performing Organization Address [facility] Co de Phone Number [facility] [address] [place] [address] * SYPHILIS ANTIBODY CASCADING REFLEX (07/26/2018 10:40 AM CDT) Treponema pallidum Antibody Non-react rebecca Non-react rebecca 07/29/2018 8:50 AM CDT [facility] Comment: No Laboratory evidence of syphilis infection. ?? Note: ??Circulating antibodies may be low or undetectable in early infection. ??If recent exposure is suspected, re-draw sample in 2-4 weeks and repeat testing. Blood BLOOD SPECIMEN / Unknown Lab Venipuncture / Unknown 07/26/2018 10:40 AM CDT 07/26/2018 11:24 AM CDT Summer Myers MD LAB - SEROLOGY ORDERABLES Performing Organization Address City/[facility]/ZIP Co de Phone Number [facility] [address] [phone] * HEMOGLOBIN A1C - POINT OF CARE (AMB) [facility] (02/26/2017 4:16 PM CDT) Hemoglobin A1c POCT 4.9 [facility] Capillary blood specimen (specimen) 02/26/2017 4:16 PM CDT Summer Myers MD LAB - POINT OF CARE ORDERABLES Performing Organization Address [facility] Co de Phone Number [facility] * PATHOLOGY TISSUE FOR DERMATOLOGY (08/03/2015 12:00 AM CDT) Only the most recent of2 resultswithin the time period is included. Result CASE: [id number] PATIENT: JESSICA BALLARD PATHOLOGIC DIAGNOSIS: Left prox. ext. forearm: BENIGN VERRUCOUS KERATOSIS HEALING SKIN CHANGES CLINICAL DATA: R/O dys. nevus. GROSS DESCRIPTION: Received is one formalin filled container labeled with the patients name and designated left prox. ext. forearm. The specimen consists of a shave biopsy measuring [id number]. Jar 0. MICROSCOPIC DESCRIPTION: Sections show hyperkeratosis, papillomatosis, hypergranulosis , and acanthosis. ??These histological findings can be seen in a verruca vulgaris or a seborrheic keratosis. In addition, there is epidermal hyperplasia beneath which there are vascular proliferation, fibroblasts, and an edematous stroma. Electronically signed out by Kimberley Lombardo M.D. 08/05/2015 1:36:21PM [facility] DERMATOLOGY [facility] Comment: Performed at: Dermatopathology Laboratory [facility] - Department of Dermatology [address] [place] [address] 5th [place] [address] Phone number: [phone] FAX: [phone] 08/03/2015 08/04/2015 Donny Gentile MD LAB - PATHOLOGY/CYTO LOGY ORDERABLES Performing Organization Address [facility] Co de Phone Number [facility] DERMATOLOGY LAB [address] [place] [address]. 5th Floor Lab [place], [place] [id number] [place] [address] Care Teams Logger Relationship Specialty Start Date End Date Rodrick Vasquez MD [address] [place] [address] PCP - General 04/10/22 Kimberly Mathews MD [address] [place] [address] Resident - PCP Student Resident 12/31/18
--- OUTSIDE RECORDS SUMMARY | 2024-06-11 10:51 | XMS_ITS | Clinical Summary ---
Author Organization [facility] Address [address] [place] [address] Care Team Providers Care Time Study Technologist Name Role Phone Kimberly Mathews MD Unavailable Rodrick Vasquez MD Primary Care Provider [phone] Source Comments [facility],non-owned Affiliates and Associated Physician Practices is amultiple site organization consisting of ambulatory clinics and hospital sitesin [place], [place], [place] and [place]. This disclosure is being madepursuant to the Care Everywhere program and may not contain all information available regarding this patient. Last updated 18.[facility] Allergies Active Allergy Reactions Criticality Noted Date Comments Lisinopril Tinnitus Low 02/26/2017 Medications * Be aware that medications may not be up to date on this document. Alwaysverify current medications with the patient. Medication Sig Dispensed Refills Start Date End Date Status amLODIPine (NORVASC) 5 MG tabletIndications:Es sential hypertension TAKE ONE TABLET BY MOUTH ONCE DAILY 90 tablet 1 01/07/2019 Active valACYclovir (VALTREX) 1 GM tablet Take 2 grams bid x 1 day (2 doses) for flares. 12 tablet 2 04/11/2019 Active finasteride (PROPECIA) 1 MG tablet Take one tab by mouth every other day. 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 (F LUZONE; FLULAVAL; FLUARIX; AFLURIA QUADRIVALENT; 6MO+), 0.5 ML (IIV4) 07/29/2018 Influenza Intradermal 02/26/2017 TDAP (7yrs+) 02/26/2017 Family History Medical History Relation Name Comments None Known Brother Cancer - Skin, Non Melanoma Father Hypertension Father None Known Maternal Aunt Cancer - Skin, Non Melanoma Maternal Grandfather Diabetes - Type 2 Maternal Grandfather None Known Maternal Grandmother None Known Maternal Uncle None Known Mother None Known Other None Known Paternal Aunt CAD (Coronary Artery Disease) Paternal Grandfather CVA Paternal Grandfather Cancer - Prostate Paternal Grandfather Cancer - Skin, Non Melanoma Paternal Grandfather None Known Paternal Grandmother None Known Paternal Uncle None Known Sister Asthma Neg Hx Cancer - Breast Neg Hx Cancer - Other Neg Hx Cancer - Skin, Melanoma Neg Hx Eczema Neg Hx Hemophilia Neg Hx Psoriasis Neg Hx Relation Name Status Comments Brother Father Maternal Aunt Maternal Grandfather Maternal Grandmother Maternal Uncle Mother Other Paternal Aunt Paternal Grandfather Paternal Grandmother Paternal Uncle Sister Social History Tobacco Use Types Packs/Day Years [...] Mass Index 26.99 02/26/2017 2:46 PM CDT Plan of Treatment Health Maintenance Due Date Last Done Comments COLOGUARD (AGES 45-75) - COLON CA SCREENING 1974 COLON MONITORING 1974 COLONOSCOPY - COLON CA SCREENING 1974 CT COLONOGRAPHY - COLON CA SCREENING 1974 Colorectal Cancer Screening 1974 FIT - COLON CA SCREENING 1974 FLEX SIG - COLON CA SCREENING 1974 LIPID TESTING 1974 HEPATITIS C SCREENING 09/22/1992 HEPATITIS B VACCINE (1 of 3 - 19+ 3-dose series) 1993 COVID-19 VACCINE (1 - 2023- season) 2024 INFLUENZA VACCINE (#1) 2024 2, 02/02/2021, 07/29/2018, Additional history exists DEPRESSION SCREENING 05/07/2024 ZOSTER VACCINE (1 of 2) 2024 DTAP/TDAP/TD VACCINES (2 - Td or Tdap) 02/26/2027 02/26/2017 HIV SCREENING Completed 07/26/2018 HIB VACCINE Aged Out No longer eligi ble based on patient's age to complete this topic HPV VACCINE Aged Out No longer eligi ble based on patient's age to complete this topic MENINGOCOCCAL (Group B) VACCINE Aged Out No longer eligible based on patient's age to complete this topic MENINGOCOCCAL VACCINE Aged Out No salima elder eligible based on patient's age to complete this topic PNEUMOCOCCAL VACCINE Aged Out No long er eligible based on patient's age to complete this topic Procedures Procedure Name Priority Date/Time Associated Diagnosis Comments HIV-1 HIV-2 ANTIGEN/ANTIBODY Routine 07/26/2018 10:40 AM CDT Contact with and (suspected) exposure to infections with a predominantly sexual mode of transmission from Last 3 Months or Most Recently Relevant to Health Maintenance Results * HIV-1 HIV-2 ANTIGEN/ANTIBODY (07/26/2018 10:40 AM CDT) HIV Antigen/Antibod y 1 & 2 Non-reacti ve Non-react rebecca 07/26/2018 12:05 PM CDT [facility] Comment: Neither HIV-1 p24 Antigen nor HIV-1/HIV-2 Antibodies are detected. ? Blood BLOOD SPECIMEN / Unknown Lab Venipuncture / Unknown 07/26/2018 10:40 AM CDT 07/26/2018 11:24 AM CDT Mark Hernández MD LAB - HEMATOLOGY ORDERABLES Performing Organization Address City/State/[facility] Co de Phone Number [facility] [address] [place] [address] from Last 3 Months or Most Recently Relevant to Health Maintenance Care Teams Time Study Technologist Relationship Specialty Start Date End Date Rodrick Vasquez MD [address] [place] [address] PCP - General 04/10/22 Kimberly Mathews MD [address] [place] [address] Resident - PCP Student Resident 12/31/18
--- OUTSIDE RECORDS SUMMARY | 2024-06-11 10:51 | XMS_ITS | Referral Summary ---
Author Organization [facility] [employer] Address [address] [place] [address] Care Team Providers Care Care Assistant Name Role Phone Kimberly Mathews MD Unavailable Rodrick Vasquez MD Primary Care Provider Source Comments [facility],non-owned Affiliates and Associated Physician Practices is amultiple site organization consisting of ambulatory clinics and hospital sitesin [place], [place]. This disclosure is being madepursuant to the Care Everywhere program and may not contain all information available regarding this patient. Last updated 18.[facility] Allergies Active Allergy Reactions Criticality Noted Date [...] 07/29/2018 Influenza Intradermal 02/26/2017 TDAP (7yrs+) 02/26/2017 Social History Tobacco Use Types Packs/Day Years [...] 02/26/2017 2:46 PM CDT Plan of Treatment Not on file Procedures Procedure Name Priority Date/Time Associated Diagnosis [...] ve Non-react rebecca 07/26/2018 12:05 PM CDT [facility] Comment: Neither HIV-1 p24 Antigen nor HIV-1/HIV-2 Antibodies are detected. ? Blood BLOOD SPECIMEN / Unknown Lab Venipuncture / Unknown 07/26/2018 10:40 AM CDT 07/26/2018 11:24 AM CDT Mark Hernández MD LAB - HEMATOLOGY ORDERABLES Performing Organization Address City/State/[facility] Co de Phone Number [facility] [address] [place] [address] from Last 3 Months or Most Recently Relevant to Health Maintenance Care Teams Care Assistant Relationship Specialty Start Date End Date Rodrick Vasquez MD [address] [place] [address] PCP - General 04/10/22 Kimberly Mathews MD [address] [place] [address] Resident - PCP Student Resident 12/31/18
--- OUTSIDE RECORDS SUMMARY | 2024-06-11 10:51 | XMS_ITS | Encounter Summary ---
Author Organization [facility] Address [address] [place] [address] Care Team Providers Care Stocking Inspector Name Role Phone Summer Myers MD Primary Care Provider Kimberly Mathews MD Unavailable Rodrick Vasquez MD Primary Care Provider [phone] Reason for Visit * Reason Onset Date Comments MEDICATION REFILL 03/20/2019 Encounter Details Date Type Department Care Team (Late st Contact Info) Description 03/20/2019 Refill [facility] [address] [place] [address] Kory Escobar MD [address] [facility] [address] [place] [address] MEDICATION REFILL Social History Tobacco Use Types Packs/Day Years [...] on filedocumented in this encounter Care Teams Stocking Inspector Relationship Specialty Start Date End Date Summer Myers MD PCP - General 04/06/17 04/09/22 Rodrick Vasquez MD [address] [place] [address] PCP - General 04/10/22 Kimberly Mathews MD [address] [place] [address] Resident - PCP Student Resident 12/31/18 documented as of this encounter
== END 2024-06-11 09:58 | disposition home or self-care (01) ==
PROVIDERS: PCP Family Medicine; Visit Provider Physician Assistant Medical
DX: R07.81 Pleurodynia (principal)
CPT/HCPCS: 71046; 71110